=== PATIENT | female | born 1960 | race Caucasian/White ===

== ENCOUNTER → 2016-11-21 | Outpatient (REF) | payer OTHER | LOC: M SFHCLERA 16:14 | PROVIDERS: ATTEND Physician Assistant | DX: N30.00 Acute cystitis without hematuria (principal) | CPT/HCPCS: 87088; 87186; G0463 ==

== ENCOUNTER → 2017-01-16 | Outpatient (CLI) | payer OTHER ==
--- NOTE | 2017-01-16 14:09 | REPMRS ---
Patient History The patient states she has not had a clinical breast exam in over a year. Patient is postmenopausal. No known family history of cancer. Digital Mammo Screening Bilat: January 16, 2017 - Exam #: [id number] Bilateral CC and MLO view(s) were taken. Technologist: Love Pizarro Technologist Prior study comparison: January 08, 2016, bilateral digital mammo screening bilat performed at [facility]. FINDINGS: The breast tissue is heterogeneously dense. This may lower the sensitivity of mammography. There has been no change in the appearance of the mammogram from the prior studies. There is a moderate amount of residual fibroglandular tissue which is fairly symmetric. There is no interval development of dominant mass, areas of architectural distortion, or clustered microcalcification typical of malignancy. ASSESSMENT: BI-RADS/ACR category 1 mammogram. Negative. Recommendation Routine screening mammogram in 1 year (for women over age 40). This mammogram was interpreted with the aid of an FDA-approved computer-aided dectection system. Electronically Signed By: Blaise Garcia MD 01/16/17 [id number]
== END ==
LOC: M RAD 13:13
PROVIDERS: ATTEND Family Medicine
DX: Z12.31 Encounter for screening mammogram for malignant neoplasm of breast (principal)

== ENCOUNTER → 2017-10-22 | Outpatient (CLI) | payer OTHER | LOC: M RAD 17:15 | DX: N64.89 Other specified disorders of breast (principal) ==

== ENCOUNTER → 2021-05-20 | Outpatient (CLI) | payer OTHER | LOC: M WHC 12:55 | PROVIDERS: ATTEND Physician Assistant | DX: Z12.31 Encounter for screening mammogram for malignant neoplasm of breast (principal) ==

== ENCOUNTER → 2023-10-08 | Outpatient (CLI) | payer OTHER | LOC: M PLARAD 14:00 | PROVIDERS: ATTEND Family Medicine | DX: K80.80 Other cholelithiasis without obstruction (principal) ==

== ENCOUNTER 2023-12-28 19:45 | Inpatient (IN) | payer OTHER ==
[~2023-12-28] VITALS: Ht 170.2 cm; Wt 57.7 kg
[2023-12-28] MEDS ORDERED: LISI20TA33 PO (20:15)
[2023-12-28] MEDS ORDERED: HYDR-3363 PO (20:15)
[2023-12-28] MEDS ORDERED: ONDA-282 PO (20:15)
[2023-12-28] MEDS ORDERED: ONDA40IN IV (20:15)
[2023-12-28] MEDS ORDERED: NYST100084 EXT (20:15)
[2023-12-28] MEDS ORDERED: ACET-683 PO (20:15)
[2023-12-28] MEDS ORDERED: LOPE1CAP5 PO (20:15)
[2023-12-28 20:55] LABS: BASO % 0.1 % (0.0-1.0); HEMATOCRIT 41.8 % (36.0-47.0); HEMOGLOBIN 13.9 g/dl (12.0-15.5); LYMPH # 0.4 10^3/uL (1.5-5.0); MEAN CORPUSCULAR HEMOGLOBIN 31.4 pg (27.0-33.0); MEAN CORPUSCULAR HGB CONC 33.3 g/dl (32.0-36.5); MEAN CORPUSCULAR VOLUME 94.6 fl (80.0-96.0); MONO # 0.2 10^3/uL (0.0-0.8); MONO % 1.8 % (2.0-8.0); NEUTROPHILS % 94.8 % (36.0-66.0); PLATELET COUNT, AUTOMATED 321 10^3/uL (150-450); RED BLOOD COUNT 4.42 10^6/uL (4.00-5.40); WHITE BLOOD COUNT 11.6 10^3/uL (4.0-10.0)
[2023-12-28 21:09] LABS: INR 0.97; PARTIAL THROMBOPLASTIN TIME 23.7 SECONDS (24.8-34.2); PROTHROMBIN TIME 12.6 SECONDS (12.5-14.5)
[2023-12-28 21:28] LABS: LIPASE 135 U/L (12-53)
[2023-12-28 21:30] LABS: ALBUMIN 4.3 G/DL (3.2-5.2); ALKALINE PHOSPHATASE 119 U/L (46-116); ALT/SGPT 31 U/L (7.0-40); AST/SGOT 39 U/L (<34); BILIRUBIN,DIRECT 0.6 MG/DL (<0.4); BILIRUBIN,TOTAL 1.5 MG/DL (0.3-1.2); BLOOD UREA NITROGEN 12 MG/DL (9-23); CALCIUM LEVEL 9.6 MG/DL (8.3-10.6); CARBON DIOXIDE LEVEL 24 MMOL/L (20-31); CHLORIDE LEVEL 107 MMOL/L (98-107); CPK CREATINE PHOSPHOKINASE 79 U/L (34-145); CREATININE FOR GFR 0.63 MG/DL (0.55-1.30); GLOMERULAR FILTRATION RATE > 60.0 (>45); GLUCOSE, FASTING 166 MG/DL (74-106); POTASSIUM SERUM 3.7 MMOL/L (3.5-5.1); SODIUM LEVEL 140 MMOL/L (136-145); TOTAL PROTEIN 6.9 G/DL (5.7-8.2)
[2023-12-28] MEDS: NS 1,000 ML IV ONE (21:32)
[2023-12-28] MEDS: HYDROMORPHONE HCL 0.5 MG/ 0.5 ML SYRINGE IV PRN (21:32)
[2023-12-28 21:37] LABS: CK-MB VALUE MASS < 1.0 NG/ML (<3.6); MB/CK RELATIVE INDEX 1.26 (< OR =4)
[2023-12-28] MEDS ORDERED: ISOVUE-370 76% 100ML VIAL As Ordered ONE (22:12)
[2023-12-29] MEDS: PERCOCET 5MG/325MG TAB PO ONE (01:29)
[2023-12-29] MEDS: ONDANSETRON 4MG ORAL DISINTEGRATING TAB PO ONE (01:29)
[2023-12-29] MEDS: NS 1,000 ML IV SCH (04:00)
[2023-12-29] MEDS ORDERED: ONDANSETRON 4MG 2ML VIAL IV PRN (04:00)
[2023-12-29] MEDS ORDERED: NYST1POW9 TOP (05:00)
[2023-12-29] MEDS ORDERED: HYDR-3363 PO (05:00)
[2023-12-29] MEDS ORDERED: ANTI2TAB17 PO (05:00)
[2023-12-29] MEDS ORDERED: ONDA-282 PO (05:00)
[2023-12-29] MEDS ORDERED: HOME MED LIST COMPLETE! XX SCH (05:00)
[2023-12-29 05:08] VITALS: BP 119/68; TEMP 97.2; O2SAT 93
[2023-12-29 06:37] LABS: CK-MB VALUE MASS < 1.0 NG/ML (<3.6)
[2023-12-29 06:39] LABS: CPK CREATINE PHOSPHOKINASE 66 U/L (34-145); MB/CK RELATIVE INDEX 1.51 (< OR =4)
[2023-12-29] MEDS: ENOXAPARIN 40MG/0.4ML SYRINGE (J1650 PER 10MG) SC SCH (08:34)
[2023-12-29] MEDS: HYDROMORPHONE HCL 0.5 MG/ 0.5 ML SYRINGE IV PRN (08:35)
[2023-12-29 10:02] LABS: ALBUMIN 3.8 G/DL (3.2-5.2); ALKALINE PHOSPHATASE 104 U/L (46-116); ALT/SGPT 35 U/L (7.0-40); AST/SGOT 27 U/L (<34); BILIRUBIN,DIRECT 0.5 MG/DL (<0.4); BILIRUBIN,TOTAL 1.6 MG/DL (0.3-1.2); TOTAL PROTEIN 6.1 G/DL (5.7-8.2)
[2023-12-29] MEDS ORDERED: PERCOCET 5MG/325MG TAB PO PRN (10:45)
[2023-12-29] MEDS ORDERED: LOPERAMIDE 2 MG CAPLET PO PRN (10:45)
[2023-12-29] MEDS ORDERED: NYSTATIN 100,000 UNITS/GM TOPICAL PWD 15GM TOP PRN (10:45)
[2023-12-29 11:00] LABS: CA19-9 TUMOR MARKER,CARBOHYDRA 20.9 U/ML (<35.0)
[2023-12-29 11:08] LABS: BASO % 0.1 % (0.0-1.0); HEMATOCRIT 37.7 % (36.0-47.0); HEMOGLOBIN 12.4 g/dl (12.0-15.5); LYMPH # 0.4 10^3/uL (1.5-5.0); MEAN CORPUSCULAR HEMOGLOBIN 31.6 pg (27.0-33.0); MEAN CORPUSCULAR HGB CONC 32.9 g/dl (32.0-36.5); MEAN CORPUSCULAR VOLUME 95.9 fl (80.0-96.0); MONO # 0.8 10^3/uL (0.0-0.8); MONO % 5.6 % (2.0-8.0); NEUTROPHILS # 13.4 10^3/uL (1.5-8.5); NEUTROPHILS % 90.8 % (36.0-66.0); PLATELET COUNT, AUTOMATED 306 10^3/uL (150-450); RED BLOOD COUNT 3.93 10^6/uL (4.00-5.40); WHITE BLOOD COUNT 14.8 10^3/uL (4.0-10.0)
[2023-12-29 12:00] VITALS: BP 116/64; TEMP 97.7; O2SAT 99
[2023-12-29] MEDS: ACETAMINOPHEN TAB 650MG DOSE (2X325MG) PO PRN (12:42)
[2023-12-29 19:54] VITALS: BP 113/67; TEMP 98.8; O2SAT 96
[2023-12-29 20:00] VITALS: BP 113/67; TEMP 98.8; O2SAT 96
[2023-12-30 04:00] VITALS: BP 110/68; TEMP 97; O2SAT 94
[2023-12-30 06:25] LABS: BASO % 0.5 % (0.0-1.0); EOS # 0.1 10^3/uL (0.0-0.5); EOS % 1.6 % (0.0-3.0); HEMATOCRIT 32.5 % (36.0-47.0); HEMOGLOBIN 10.6 g/dl (12.0-15.5); LYMPH # 0.7 10^3/uL (1.5-5.0); LYMPH % 10.7 % (24.0-44.0); MEAN CORPUSCULAR HEMOGLOBIN 31.5 pg (27.0-33.0); MEAN CORPUSCULAR HGB CONC 32.6 g/dl (32.0-36.5); MEAN CORPUSCULAR VOLUME 96.4 fl (80.0-96.0); MONO # 0.5 10^3/uL (0.0-0.8); MONO % 8.1 % (2.0-8.0); NEUTROPHILS # 4.9 10^3/uL (1.5-8.5); NEUTROPHILS % 78.9 % (36.0-66.0); PLATELET COUNT, AUTOMATED 207 10^3/uL (150-450); RED BLOOD COUNT 3.37 10^6/uL (4.00-5.40); WHITE BLOOD COUNT 6.2 10^3/uL (4.0-10.0)
[2023-12-30 06:36] LABS: ALBUMIN 2.8 G/DL (3.2-5.2); ALKALINE PHOSPHATASE 104 U/L (46-116); ALT/SGPT 43 U/L (7.0-40); AST/SGOT 53 U/L (<34); BILIRUBIN,TOTAL 1.5 MG/DL (0.3-1.2); BLOOD UREA NITROGEN 7 MG/DL (9-23); CALCIUM LEVEL 8.4 MG/DL (8.3-10.6); CARBON DIOXIDE LEVEL 26 MMOL/L (20-31); CHLORIDE LEVEL 107 MMOL/L (98-107); CREATININE FOR GFR 0.59 MG/DL (0.55-1.30); GLOMERULAR FILTRATION RATE > 60.0 (>45); GLUCOSE, FASTING 90 MG/DL (74-106); POTASSIUM SERUM 4.2 MMOL/L (3.5-5.1); SODIUM LEVEL 137 MMOL/L (136-145); TOTAL PROTEIN 4.8 G/DL (5.7-8.2)
[2023-12-30 09:22] VITALS: BP 130/73
[2023-12-30] MEDS ORDERED: HYDR-3713 PO (10:05)
== END 2023-12-30 11:39 | disposition home or self-care (01) | DRG 440 ==
LOC: M ED 19:45 → M ED INP 12-29 03:57 → M MSPAV 12-29 05:08
PROVIDERS: ADMIT Internal Medicine; ATTEND Internal Medicine
DX: K86.89 Other specified diseases of pancreas (principal); I10 Essential (primary) hypertension; K58.9 Irritable bowel syndrome, unspecified; F41.9 Anxiety disorder, unspecified; M19.019 Primary osteoarthritis, unspecified shoulder; Z79.899 Other long term (current) drug therapy

== ENCOUNTER → 2024-01-23 | Outpatient (CLI) | payer OTHER ==
[~2024-01-23] MED LIST: ACET-683 PO; ANTI2TAB17 PO; HYDR-3363 PO; HYDR-3713 PO; LISI20TA33 PO; LOPE1CAP5 PO; NYST100084 EXT; NYST1POW9 TOP; ONDA-282 PO; ONDA40IN IV
== END ==
LOC: M RAD 10:05
PROVIDERS: ATTEND Physician Assistant
DX: M25.512 Pain in left shoulder (principal)

== ENCOUNTER → 2024-02-03 | Outpatient (CLI) | payer OTHER ==
[~2024-02-03] MED LIST changes: +ISOVUE-370 76% 100ML VIAL As Ordered ONE
== END ==
LOC: M RAD 10:42
PROVIDERS: ATTEND Physician Assistant
DX: R10.13 Epigastric pain (principal)